=== PATIENT | male | born 1960 | race Two or more races ===

== ENCOUNTER 2024-08-18 06:23 | Day surgery (SDC) | payer BC, SELFPAY ==
[2024-08-18 12:25] LABS: Glucose - Point of Care 113 mg/dl (70-99)
== END 2024-08-18 13:47 | disposition home or self-care (01) ==
LOC: GI 06:23
PROVIDERS: ATTENDING PHYSICIAN Internal Medicine Gastroenterology
DX: Z12.11 Encounter for screening for malignant neoplasm of colon (principal); K57.30 Diverticulosis of large intestine without perforation or abscess without bleeding; K64.8 Other hemorrhoids; D12.2 Benign neoplasm of ascending colon; K63.5 Polyp of colon; K62.1 Rectal polyp; Z86.0100 Personal history of colon polyps, unspecified
CPT/HCPCS: 45385; 45380; 88305; 82962